=== PATIENT | female | born 1935 | race Two or more races ===

== ENCOUNTER 2020-02-28 13:02 | Inpatient (IN) | payer SELFPAY ==
[~2020-02-28] VITALS: Ht 152.4 cm; Wt 50.8 kg
[2020-02-28] MEDS ORDERED: ACETAMINOPHEN 325MG TABLET PO STA (13:16)
[2020-02-28] MEDS ORDERED: FUROSEMIDE 100MG/10ML VIAL IVP NR (15:00)
[2020-02-28] MEDS ORDERED: NITROGLYCERIN OINT 1GM/INCH UDPKT TD NR (15:00)
[2020-02-28 15:05] LABS: HEMATOCRIT. 23.4 % (36.0-48.0); HEMOGLOBIN. 7.9 g/dL (12.0-16.0); MEAN CORPUSCULAR HEMOGLOBIN 33.9 pg (28.0-32.0); MEAN CORPUSCULAR VOLUME 100.1 fL (81.0-99.0); PLATELET 127 x1000/uL (130-400); RED BLOOD CELL COUNT 2.34 mill/uL (4.2-5.4); RED CELL DISTRIBUTION WIDTH 15.7 % (11.6-14.6)
[2020-02-28 15:09] LABS: CHLORIDE 97 mEq/L (98-107)
[2020-02-28 15:13] LABS: INR 1.2; PROTHROMBIN TIME 12.8 sec (9.6-11.0)
[2020-02-28] MEDS ORDERED: CEFTRIAXONE 1 G PREMIX 50 ML IV SCH (15:15)
[2020-02-28] MEDS ORDERED: SODIUM CHLORIDE 0.9% 1000ML BAG (SEPSIS BOLUS) IV NR (15:15)
[2020-02-28] MEDS ORDERED: AZITHROMYCIN 500 MG in DEXT 5% WATER 250 ML IV SCH (16:00)
[2020-02-28 16:03] LABS: PLATELET ESTIMATE SLIGHTLY DECREASED
[2020-02-28] MEDS ORDERED: ASPIRIN 325MG TABLET PO NR (18:00)
[2020-02-28 19:21] LABS: CLARITY URINE CLOUDY (CLEAR); COLOR URINE YELLOW (YELLOW); KETONES URINE NEGATIVE (NEGATIVE); LEUKOCYTE ESTERASE URINE 3+ (NEGATIVE); NITRITE URINE NEGATIVE (NEGATIVE); OCCULT BLOOD URINE NEGATIVE (NEGATIVE); PH URINE >=9.0 (4.5-8.0); PROTEIN URINE 3+ (NEGATIVE); SPECIFIC GRAVITY URINE 1.012 (1.005-1.030)
[2020-02-29] MEDS ORDERED: ONDANSETRON HCL 4MG/2ML INJ IV PRN (00:15)
[2020-02-29] MEDS ORDERED: DOCUSATE SODIUM 100MG CAPSULE PO PRN (00:15)
[2020-02-29] MEDS ORDERED: CLONIDINE 0.1MG TABLET PO PRN (00:15)
[2020-02-29] MEDS ORDERED: ACETAMINOPHEN 325MG TABLET PO PRN (00:15)
[2020-02-29] MEDS ORDERED: MAGNESIUM/ALUMINUM HYDROXIDE/SIMETHICONE 30ML UDC PO PRN (00:15)
[2020-02-29] MEDS ORDERED: HYDROCODONE/ACETAMINOPHEN 5/325MG TABLET PO PRN (00:15)
[2020-02-29] MEDS ORDERED: MVI, ADULT NO.1 10 ML, FOLIC ACID 1 MG, THIAMINE HCL 100 MG in SODIUM CHLORIDE 0.9% 1,0... IV NR ×4 (02:00)
[2020-02-29] MEDS: FUROSEMIDE 40MG/4ML VIAL IV SCH (10:00)
[2020-02-29] MEDS: AMLODIPINE 10MG TABLET PO SCH (10:00)
[2020-02-29] MEDS: ENOXAPARIN 30MG/0.3ML SYR SUBCUT SCH (10:00)
[2020-02-29 12:00] VITALS: BP 141/44
[2020-02-29] MEDS ORDERED: AZITHROMYCIN 500 MG in DEXT 5% WATER 250 ML IV SCH ×2 (14:00→17:00)
[2020-02-29] MEDS ORDERED: CEFTRIAXONE 1 G PREMIX 50 ML IV SCH (15:00)
[2020-02-29 15:26] VITALS: BP 144/44
[2020-02-29] MEDS ORDERED: CEFTRIAXONE 1,000 MG in DEXTROSE 5% WATER 50 ML IV SCH ×2 (15:30→17:00)
[2020-02-29 16:00] VITALS: BP 127/59
[2020-02-29 18:07] LABS: CREATINE KINASE 51 IU/L (26-192)
[2020-02-29 18:08] LABS: CREATINE KINASE MB FRACTION < 1.0 ng/mL (0.5-3.6)
[2020-02-29] MEDS: DOXYCYCLINE HYCLATE 100MG CAPSULE PO SCH (18:16)
[2020-02-29] MEDS: GUAIFENESIN 200MG/10ML SUGAR FREE UDC PO PRN (18:16)
[2020-02-29 20:00] VITALS: BP 130/38
[2020-03-01] VITALS: BP 123/42
[2020-03-01 04:00] VITALS: BP 153/56
[2020-03-01] MEDS: DOXYCYCLINE HYCLATE 100MG CAPSULE PO SCH (06:15)
[2020-03-01 08:00] VITALS: BP 129/37
[2020-03-01] MEDS ORDERED: CHOLECALCIFEROL (D3) 1000 UNIT TABLET PO SCH (09:00)
[2020-03-01 09:06] LABS: BASOPHILS % 0.2 % (0.0-2.0); CHLORIDE 99 mEq/L (98-107); EOSINOPHILS % 3.7 % (0.0-5.0); MEAN CORPUSCULAR HEMOGLOBIN 34.7 pg (28.0-32.0); MEAN CORPUSCULAR VOLUME 100.9 fL (81.0-99.0); MEAN PLATELET VOLUME 9.5 fl (7.4-10.4); MONOCYTES % 11.7 % (2.0-8.0); NEUTROPHILS % 75.4 % (40.0-76.0); PLATELET 122 x1000/uL (130-400); RED BLOOD CELL COUNT 1.91 mill/uL (4.2-5.4); RED CELL DISTRIBUTION WIDTH 15.2 % (11.6-14.6)
[2020-03-01 09:14] LABS: HDL CHOLESTEROL 58 mg/dL (40-59); LDL CHOLESTEROL 42 mg/dL (5-100)
[2020-03-01 09:44] LABS: HEMATOCRIT. 19.2 % (36.0-48.0); HEMOGLOBIN. 6.6 g/dL (12.0-16.0)
[2020-03-01] MEDS: ENOXAPARIN 30MG/0.3ML SYR SUBCUT SCH (10:11)
[2020-03-01] MEDS: FUROSEMIDE 40MG/4ML VIAL IV SCH (10:11)
[2020-03-01] MEDS: AMLODIPINE 10MG TABLET PO SCH (10:11)
[2020-03-01] MEDS: GUAIFENESIN 200MG/10ML SUGAR FREE UDC PO PRN (10:18)
[2020-03-01 12:00] VITALS: BP 116/47
[2020-03-01 16:00] VITALS: BP 134/39
[2020-03-01] MEDS: BENZONATATE 100MG CAPSULE PO PRN (16:35)
[2020-03-01] MEDS: MEROPENEM 500 MG in SODIUM CHLORIDE 0.9% 50 ML IV SCH (16:35)
[2020-03-01 20:00] VITALS: BP 101/44
[2020-03-02] VITALS (12 sets, daily range): BP systolic 129–160; BP diastolic 39–49
[2020-03-02] MEDS: AMLODIPINE 10MG TABLET PO SCH (09:00)
[2020-03-02] MEDS: FUROSEMIDE 40MG/4ML VIAL IV SCH (09:00)
[2020-03-02 09:29] LABS: BASOPHILS % 0.4 % (0.0-2.0); EOSINOPHILS % 4.1 % (0.0-5.0); HEMOGLOBIN. 7.8 g/dL (12.0-16.0); LYMPHOCYTES % 7.6 % (20.0-50.0); MEAN CORPUSCULAR HEMOGLOBIN 34.4 pg (28.0-32.0); MEAN CORPUSCULAR VOLUME 102.1 fL (81.0-99.0); MEAN PLATELET VOLUME 9.5 fl (7.4-10.4); MONOCYTES % 9.3 % (2.0-8.0); NEUTROPHILS % 78.6 % (40.0-76.0); PLATELET 133 x1000/uL (130-400); RED BLOOD CELL COUNT 2.25 mill/uL (4.2-5.4); RED CELL DISTRIBUTION WIDTH 15.4 % (11.6-14.6)
[2020-03-02] MEDS: ENOXAPARIN 30MG/0.3ML SYR SUBCUT SCH (09:32)
[2020-03-02 09:48] LABS: CHLORIDE 109 mEq/L (98-107)
[2020-03-02] MEDS: MEROPENEM 500 MG in SODIUM CHLORIDE 0.9% 50 ML IV SCH (18:01)
[2020-03-03] VITALS: BP 157/49
[2020-03-03 04:00] VITALS: BP 177/53
[2020-03-03] MEDS: GUAIFENESIN 200MG/10ML SUGAR FREE UDC PO PRN (06:28)
[2020-03-03 08:00] VITALS: BP 160/44
[2020-03-03] MEDS: ENOXAPARIN 30MG/0.3ML SYR SUBCUT SCH (08:41)
[2020-03-03] MEDS: FUROSEMIDE 40MG/4ML VIAL IV SCH ×2 (08:41→08:43)
[2020-03-03] MEDS: AMLODIPINE 10MG TABLET PO SCH (08:41)
[2020-03-03] MEDS: BENZONATATE 100MG CAPSULE PO PRN (08:51)
[2020-03-03 11:15] VITALS: BP 141/46
[2020-03-03 12:00] VITALS: BP 141/46
== END 2020-03-03 12:45 | disposition home or self-care (01) | DRG 720 ==
LOC: ER 13:02 → 7WST 19:20 → EDBEDREQ 19:26 → EDBEDREQTM 19:26 → ENRESERV 02-29 07:45 → 6WST 02-29 23:58
PROVIDERS: ADMIT Hospitalist; ATTEND Hospitalist
PROC: 5A1D70Z Performance of Urinary Filtration, Intermittent, Less than 6 Hours Per Day (ICD-10-PCS; principal; 2020-03-02)
PROC: 5A1D70Z Performance of Urinary Filtration, Intermittent, Less than 6 Hours Per Day (ICD-10-PCS; 2020-03-03)
DX: A41.59 Other Gram-negative sepsis (principal); B96.20 Unspecified Escherichia coli [E. coli] as the cause of diseases classified elsewhere; D63.1 Anemia in chronic kidney disease; D69.6 Thrombocytopenia, unspecified; E11.22 Type 2 diabetes mellitus with diabetic chronic kidney disease; J18.9 Pneumonia, unspecified organism; J96.00 Acute respiratory failure, unspecified whether with hypoxia or hypercapnia; E44.1 Mild protein-calorie malnutrition; R54 Age-related physical debility; I45.81 Long QT syndrome; I13.2 Hypertensive heart and chronic kidney disease with heart failure and with stage 5 chronic kidney disease, or end stage renal disease; I50.33 Acute on chronic diastolic (congestive) heart failure; I25.10 Atherosclerotic heart disease of native coronary artery without angina pectoris; Z20.828 Contact with and (suspected) exposure to other viral communicable diseases; N17.9 Acute kidney failure, unspecified; N18.6 End stage renal disease; N39.0 Urinary tract infection, site not specified; Z99.2 Dependence on renal dialysis; Z68.21 Body mass index [BMI] 21.0-21.9, adult
CPT/HCPCS: 36415; 71045; 80053; 80061; 81003; 82550; 82553; 82728; 82962; 83605; 83880; 84145; 84443; 84484; 85025; 85379; 86140; 86850; 86900; 86920; 87077; 87186; 87635; 87804; 93005; 93306; 93970; 99291; J0456; J0696; J1650; J1940; J2185; J3411; J3490; J7030; J7060